=== PATIENT | female | born 1980 | race Caucasian/White ===

== ENCOUNTER 2021-01-01 20:49 | Inpatient (IN) | payer MEDICAID, SELFPAY ==
[~2021-01-01] VITALS: Ht 177.8 cm; Wt 72.6 kg
[~2021-01-01 20:49] MED LIST: NORCO5 PO; VITAMINS PO
--- NOTE | 2021-01-01 20:49 | NUR ---
Placed in room 1 . Placed on rn cardiac, blood pressure machine and pulse oximeter. To gown for exam. Side rails up. Report given to
--- NOTE | 2021-01-01 20:57 | NUR ---
ER at bedside examining patient.
[2021-01-01 20:58] VITALS: BP_SYST 158
[2021-01-01] MEDS ORDERED: LACTULOSE 20 GM/30 ML UDC PO ONE (21:00)
[2021-01-01] MEDS ORDERED: PANTOPRAZOLE SODIUM 40 MG/VIAL (PROTONIX) IVP ONE (21:00)
--- NOTE | 2021-01-01 21:00 | NUR ---
Patient brought in via EMS from home. pt is a 40-year-old female, with history of chronic liver disease, who presents to the ED by ambulance from home with altered mental status for the past 24 hours. EMS also reports complaints of generalized weakness and jaundice. vital signs stable and pt afeb.
[2021-01-01 21:54] LABS: POTASSIUM 4.1 mmol/L (3.5-5.1)
[2021-01-01 21:55] LABS: CALCIUM 8.9 mg/dL (8.4-11.0); TOTAL BILIRUBIN 3.9 mg/dL (0.0-1.0)
[2021-01-01 21:56] LABS: ALBUMIN 2.6 g/dL (3.4-4.8); CREATININE 2.06 mg/dL (0.55-1.30)
[2021-01-01 21:58] LABS: BASOPHILS # (AUTO) 0.1 K/uL (0.0-0.2); BASOPHILS % (AUTO) 1.2 % (0.0-2.0); EOSINOPHILS # (AUTO) 0.1 K/uL (0.0-0.4); EOSINOPHILS % (AUTO) 1.1 % (0.0-4.0); HEMATOCRIT 23.3 % (36-48); HEMOGLOBIN 7.8 g/dL (12.0-16.0); LYMPHOCYTES # (AUTO) 0.9 K/uL (1.0-5.5); LYMPHOCYTES % (AUTO) 17.9 % (20.5-51.5); MEAN CORPUSCULAR HEMOGLOBIN 33 pg (27-31); MEAN CORPUSCULAR HGB CONC 34 % (32-36); MEAN CORPUSCULAR VOLUME 98 fL (79.0-98.0); MONOCYTES # (AUTO) 0.2 K/uL (0.0-1.0); MONOCYTES % (AUTO) 4.4 % (1.7-9.3); NEUTROPHILS % (AUTO) 75.4 % (40.0-70.0); RED BLOOD CELL COUNT(AUTO) 2.39 MIL/uL (4.2-6.2); RED CELL DISTRIBUTION WIDTH 18.9 % (9.0-15.0); WHITE BLOOD COUNT (AUTO) 5.3 K/uL (4.8-10.8)
--- NOTE | 2021-01-01 22:00 | NUR ---
some labs still pending, nursing interventions are well tolerated as well Portable CXR bedside
[2021-01-01 22:02] LABS: BILIRUBIN,URINE NEGATIVE (NEGATIVE); CLARITY/URINE CLEAR (CLEAR); GLUCOSE,URINE NEGATIVE (NEGATIVE); KETONES,URINE TRACE (NEGATIVE); LEUKOCYTE ESTERASE ,URINE NEGATIVE (NEGATIVE); NITRITE, URINE NEGATIVE (NEGATIVE); PH,URINE 6.5 (5.0-8.0); PROTEIN URINE TRACE (NEGATIVE); UROBILINOGEN,URINE 0.2 (0.2-1.0)
[2021-01-01 22:09] LABS: BLOOD, URINE TRACE (NEGATIVE); COLOR,URINE AMBER (YELLOW)
[2021-01-01 22:13] LABS: RBC,URINE 0-3 /HPF (0-3); URINE SULFO SALICYLIC ACID NEGATIVE (NEGATIVE); WBC,URINE 0-3 /HPF (0-3)
[2021-01-01 22:13] LABS: PLATELET COUNT (AUTO) 85 K/uL (130-430)
[2021-01-01 22:14] LABS: BACTERIA,URINE FEW /HPF (None Seen); MUCUS,URINE None Seen /LPF (None Seen)
[2021-01-01] MEDS ORDERED: FOLI-43 PO (22:41)
[2021-01-01] MEDS ORDERED: FURO40TA5 PO (22:46)
--- NOTE | 2021-01-01 23:25 | NUR ---
Dr. Schulte bedside for pt re-eval and update
[2021-01-01] MEDS ORDERED: GOLYTELY / COLYTE SOLUTION 4 LITERS PO ONE (23:45)
[2021-01-02] MEDS: LACTULOSE 20 GM/30 ML UDC PO SCH ×4 (00:15→23:23)
--- NOTE | 2021-01-02 00:28 | NUR ---
VSS, remains lethargic NG tube verified in place, Go Lytely well tolerated
[2021-01-02 00:38] LABS: AMYLASE 49 U/L (0-100); LIPASE 183 U/L (73-393)
[2021-01-02 00:46] LABS: BARBITURATE, URINE NEGATIVE (NEG <=200); BENZODIAZEPINE, URINE NEGATIVE (NEG <=150); CANNABINOID, URINE NEGATIVE (NEG <=50); COCAINE, URINE NEGATIVE (NEG <=150); METHAMPHETAMINES SCREEN,URINE NEGATIVE (NEG <=500); OPIATE, URINE NEGATIVE (NEG <=100); PHENCYCLIDINE SCREEN,URINE NEGATIVE (NEG <=25); UR TRICYCLIC ANTIDEPRESSANTS NEGATIVE (NEG <=300); URINE AMPHETAMINE NEGATIVE (NEG <=500); URINE METHADONE NEGATIVE (NEG <=200); URINE OXYCODONE SCREEN NEGATIVE (NEG <=100); URINE PROPOXYPHENE SCREEN NEGATIVE (NEG <=300)
--- NOTE | 2021-01-02 01:19 | NUR ---
Pt remains in stable condition, Dr. Schulte bedside for re-assessment
[2021-01-02] MEDS: NACL 0.9% 1,000 ML IV SCH ×3 (01:20→23:20)
--- NOTE | 2021-01-02 02:00 | NUR ---
pt not tolerating go lytely very well and had some emesis. cxry ordered to verify ngt placement and tube was correctly placed. go lytley stoped temporariy so infusion not complete yet. will continue to monitor.
--- NOTE | 2021-01-02 04:39 | NUR ---
0400 pt remains stable. Pt wshed up and treansferred to a hospital bed for more comfort. no bowel movement from the go lytely infusion yet. will continue to monitor
--- NOTE | 2021-01-02 06:36 | NUR ---
pt remains stable overnight. Vital signs remain stable. pt still hasnt have a bowel movement sincethe golytely was given
--- NOTE | 2021-01-02 07:14 | NUR ---
Pt asleep in hospital bed. Vital signs holding. Attached to monitor with side rails up.
--- NOTE | 2021-01-02 07:14 | NUR ---
Report recieved from Francisco MCGEE.
--- NOTE | 2021-01-02 08:00 | NUR ---
Patient transported to radiology via gurney, accompanied by benjamín.
--- NOTE | 2021-01-02 08:15 | NUR ---
Pt back from CT reattached to monitor.
--- NOTE | 2021-01-02 08:47 | NUR ---
Patient will be admitted to care of Dr. Amaya. Admitted to Telemetry unit. Will go to room 121C. Belongings list completed. Complete and up to date summary report printed. SBAR report to be given at bedside with opportunity for questions.
--- NOTE | 2021-01-02 08:48 | NUR ---
Transferred pt to telemetry unit on hospital bed ETA now.
--- NOTE | 2021-01-02 09:00 | NUR ---
NOTE Pt arrived on floor at 09am from ED. Pt had NGT clamped for oral fluids (lactulose). IV in right and left hand intact and patent at this time. Pt does not respond to questions/queries - pt was logrolled side to side with maximum assist - 2 person as pt does not respond to instructions at this time. Pt unable to comprehend orientation to room and nursing routines and procedures at this time. Call light within reach and pt next to nurses' station for close observation.
[2021-01-02] MEDS ORDERED: RIFAXIMIN 550 MG TABLET PO ONE (09:45)
[2021-01-02 10:44] VITALS: BP_SYST 137
[2021-01-02] MEDS ORDERED: FER300L PO (11:20)
[2021-01-02] MEDS ORDERED: ZINC50TA69 PO (11:20)
[2021-01-02] MEDS ORDERED: SPIR100T5 PO (11:20)
[2021-01-02] MEDS ORDERED: RIFA550T5 PO (11:20)
[2021-01-02] MEDS ORDERED: OMEP20CA15 PO (11:20)
[2021-01-02] MEDS ORDERED: FAMO20TA8 PO (11:20)
[2021-01-02] MEDS ORDERED: FURO-149 PO (11:20)
[2021-01-02] MEDS ORDERED: MULT-1164 PO (11:20)
[2021-01-02] MEDS ORDERED: LACT10SO6 PO (11:20)
[2021-01-02 12:00] VITALS: BP_SYST 135
--- NOTE | 2021-01-02 12:14 | NUR ---
NOTE Pt's medications were taken to [facility]. Pt's vitamins and supplements in bag next to pt's bureau.
--- NOTE | 2021-01-02 12:26 | NUR ---
CONSULTATION PAGED REASON FOR CONSULTATION:AMANDA WAS CONSULT CALLED?Y PERSON WHO WAS NOTIFIED:HARJIT CONSULTING PHYSICIAN:KAIA QUINTERO (JOANA BARRON MANAGER TRAINEE) STAFF REGISTERED NURSE SPECIALTY:NEPHRO STAFF REGISTERED NURSE PHONE NUMBER:[phone] REQUESTING PHYSICIAN:BURAK ERNANDEZ
--- NOTE | 2021-01-02 14:13 | NUR ---
Note Pt's jose angel Thakkar called for update on pt's status. Dr Nelson at bedside for assessment of pt at this time. Call light within reach. Pt still non responsive to questions/queries at this time. Call light within reach.
[2021-01-02 16:00] VITALS: BP_SYST 173
--- NOTE | 2021-01-02 16:41 | NUR ---
PAGED PAGED BURAK ERNANDEZ AT [phone] SPOKE WITH .
[2021-01-02] MEDS ORDERED: hydrALAZINE HCL 20 MG/ML VIAL IVP PRN (16:45)
--- NOTE | 2021-01-02 18:15 | NUR ---
Note Pt having US of abdomen at bedside at this time. Pt was checked on q1' and PRN all shift for needs and care. Pt stable. Pt's bed in low position and bed alarm on all shift. Pt maintained with safety precautions all shift. Call light within reach.
--- NOTE | 2021-01-02 19:40 | NUR ---
CHANGE OF SHIFT; pt. sleeping when received. kept NPO. no distress. bed alarm on. IVF infusing. on hospital monitor and shows sinus tach 130. pt. room close to nurses station, unable to use call light.
[2021-01-02 20:21] VITALS: BP_SYST 152
--- NOTE | 2021-01-02 21:00 | NUR ---
NOTES; medications per NGT and clamped. some movements noted when stimulated but remain sleeping.
[2021-01-02] MEDS: RIFAXIMIN 550 MG TABLET PO SCH (21:04)
[2021-01-03 00:01] VITALS: BP_SYST 148
--- NOTE | 2021-01-03 00:13 | NUR ---
NOTES: pt. noted to be moaning. due medication via NGT. pt. michelle called earlier and gave update. continue to monitor. VS checked .HR still up 127.
--- NOTE | 2021-01-03 02:30 | NUR ---
NOTES: remain sleeping. condition observed, continue to monitor.
--- NOTE | 2021-01-03 05:00 | NUR ---
NOTES; complete am care done. no bm. medications thru NGT, kept NPO. IV infusing. repositioned. oral care done.
[2021-01-03] MEDS: LACTULOSE 20 GM/30 ML UDC PO SCH ×2 (05:57→15:41)
--- NOTE | 2021-01-03 06:30 | NUR ---
CLOSING NOTES; CONDITION UNCHANGED, BEEN MOANING ON STIMULATION. IV SITE PATENT. NGT INTACT. FOR FURTHER CARE AND OBSERVATION. WILL ENDORASE TO INCOMING SHIFT. BED ALARM ON.
[2021-01-03 07:50] LABS: BASOPHILS % (AUTO) 0.3 % (0.0-2.0); EOSINOPHILS % (AUTO) 0.2 % (0.0-4.0); HEMOGLOBIN 7.4 g/dL (12.0-16.0); LYMPHOCYTES # (AUTO) 1.6 K/uL (1.0-5.5); LYMPHOCYTES % (AUTO) 12.9 % (20.5-51.5); MEAN CORPUSCULAR HEMOGLOBIN 33 pg (27-31); MEAN CORPUSCULAR HGB CONC 34 % (32-36); MEAN CORPUSCULAR VOLUME 98 fL (79.0-98.0); MONOCYTES # (AUTO) 1.1 K/uL (0.0-1.0); MONOCYTES % (AUTO) 9.4 % (1.7-9.3); NEUTROPHILS # (AUTO) 9.4 K/uL (1.8-7.7); NEUTROPHILS % (AUTO) 77.2 % (40.0-70.0); PLATELET COUNT (AUTO) 123 K/uL (130-430); RED BLOOD CELL COUNT(AUTO) 2.24 MIL/uL (4.2-6.2); RED CELL DISTRIBUTION WIDTH 19.3 % (9.0-15.0); WHITE BLOOD COUNT (AUTO) 12.2 K/uL (4.8-10.8)
[2021-01-03 08:05] VITALS: BP_SYST 157
--- NOTE | 2021-01-03 08:05 | NUR ---
Opening note patient resting in bed, lethargic, patient is moaning, unable to follow commands, jaundiced, abd is soft but distended, NGT to right nare in patent and clamped, IV lines are patent and infusing well, noted that patient has bleeding from in the mouth - old dried blood and active bleeding from her gums, performed oral care with difficulty and patient is not cooperative - will inform MD of bleeding, no signs of distress, continuing to monitor, bed in lowest position, three side rails up, bed alarm on, bed close to nursing station, fall and aspiration precautions in place.
[2021-01-03 08:44] LABS: ALBUMIN 2.5 g/dL (3.4-4.8); CALCIUM 8.6 mg/dL (8.4-11.0); CREATININE 2.03 mg/dL (0.55-1.30); POTASSIUM 3.8 mmol/L (3.5-5.1)
[2021-01-03] MEDS: RIFAXIMIN 550 MG TABLET PO SCH ×2 (09:09→20:38)
--- NOTE | 2021-01-03 10:17 | NUR ---
Dr. Rey rounds assessed the patient, new orders noted - will follow up. Made aware of patient bleeding in the mouth - no new orders. Addendum: 01/03/21 at 1531 by Chester Pinto RN Paged Dr. Krissy DIEGO had verbalized that patient will have MRCP tomorrow, no order noted.
[2021-01-03 12:24] VITALS: BP_SYST 144
--- NOTE | 2021-01-03 12:52 | NUR ---
Spoke with Dr. Smith regarding critical labs and patient bleeding from the mouth - received new orders and MD to see the patient.
--- NOTE | 2021-01-03 12:55 | NUR ---
Attempted to call family patient's fiance for blood transfusion consent, left a voicemail - will follow up. Addendum: 01/03/21 at 1529 by Chester Pinto RN Patient's fiance, Bijan at bedside, he signed the consent for blood transfusion.
[2021-01-03] MEDS: SODIUM BICARBONATE 8.4% JECT 50 MEQ in D5/0.45 NS 1,000 ML IV SCH (13:59)
--- NOTE | 2021-01-03 14:00 | NUR ---
Spoke with family patient's Salome Thakkar, gave him an update, he will come to see the patient in about 1 hour, he would like to talk in person regarding consent for blood and MRCP, will follow up as needed.
--- NOTE | 2021-01-03 14:20 | NUR ---
Dr. Smith rounds assessed patient, aware of bleeding from mouth, will follow up with any new orders.
[2021-01-03 16:14] VITALS: BP_SYST 149
--- NOTE | 2021-01-03 18:05 | NUR ---
BT INITIATION: Consent signed per patient's significant other, Bijan, agreeing to administration of blood. Blood has been type and crossmatched. Blood sent from blood bank. Information on unit of blood checked against patient wristband at bedside by two nurses. All information matches. Patient or responsible libertarian informed of potential complications associated with blood transfusion. Informed of possible transfusion reaction symptoms. Aware of need to notify nurse at once of itching, shortness of breath, flushing, feeling of impending doom, or other symptoms not previously present. Vital signs taken within 5 minutes prior to initiation of transfusion. RN will remain with patient for first 15 minutes of transfusion at which time vital signs will be re-assessed. Addendum: 01/03/21 at 1821 by Chester Pinto RN 15 minutes post start of blood transfusion, patient is tolerating well, continuing to monitor.
--- NOTE | 2021-01-03 18:44 | NUR ---
Closing note patient resting in bed, eyes closed, breathing is even and unlabored, no signs of distress, tolerating blood transfusion well, all needs met, will endorse report to NOC shift nurse, bed in lowest position, three side rails up, bed alarm on, bed close to nursing station, fall and aspiration precautions in place.
--- NOTE | 2021-01-03 19:20 | NUR ---
CHANGE OF SHIFT; endorsed by day shift started on Blood transfusion. no acute distress. on fall risk, bed alarm on.
[2021-01-03 20:30] VITALS: BP_SYST 130
--- NOTE | 2021-01-03 20:30 | NUR ---
NOTES: pt. sleeping, still pretty lethargic, moans occasionally.Blood transfusion still in progress. HOB elevated, on NGT feeding with Nephro @ 40 cc.hr. VS checked. on alarm security or surveillance monitor and shows sinu tach. old blood orally noted.
[2021-01-03] MEDS: FAMOTIDINE 20 MG TABLET PO SCH (20:38)
--- NOTE | 2021-01-03 21:10 | NUR ---
NOTES: Blood transfusion completed. VS checked. resume main IVF after.
--- NOTE | 2021-01-03 22:37 | NUR ---
NOTES: pt. starts coughing, suctioned orally and oral care done.
[2021-01-04 00:23] VITALS: BP_SYST 157
--- NOTE | 2021-01-04 00:30 | NUR ---
NOTES: still coughing, dark mucus came out and suctioned. due neds via NGT. chad and groans.
[2021-01-04] MEDS: LACTULOSE 20 GM/30 ML UDC PO SCH ×4 (00:31→23:45)
[2021-01-04] MEDS: SODIUM BICARBONATE 8.4% JECT 50 MEQ in D5/0.45 NS 1,000 ML IV SCH ×3 (00:31→14:51)
--- NOTE | 2021-01-04 03:00 | NUR ---
NOTES: condition observed. still coughing every now and then. NGT feed continuous. H2oO flush done.
--- NOTE | 2021-01-04 05:00 | NUR ---
NOTES'; complete am/gali care and oral care done. no bm, incontinent of urine.
--- NOTE | 2021-01-04 06:40 | NUR ---
Nutrition Update Alfredo Scale 12 noted. Pt admitted for Hepatic Encephalopathy Diet: Nepro at 40ml/hr, FWF 100ml via NGT BMI: 23 kg/m2 RD to follow per nutrition care standards.
--- NOTE | 2021-01-04 06:50 | NUR ---
CLOSING NOTES; condition observed. IVF continuous. NGT feed at same rate. remains lethargic. for further care and assistance. no BM. bed alarm on. pt. unable to use call light.
[2021-01-04 07:14] LABS: BASOPHILS % (AUTO) 0.4 % (0.0-2.0); EOSINOPHILS # (AUTO) 0.1 K/uL (0.0-0.4); EOSINOPHILS % (AUTO) 0.7 % (0.0-4.0); HEMOGLOBIN 7.9 g/dL (12.0-16.0); LYMPHOCYTES # (AUTO) 1.6 K/uL (1.0-5.5); MEAN CORPUSCULAR HEMOGLOBIN 33 pg (27-31); MEAN CORPUSCULAR HGB CONC 34 % (32-36); MEAN CORPUSCULAR VOLUME 97 fL (79.0-98.0); MONOCYTES # (AUTO) 1.4 K/uL (0.0-1.0); MONOCYTES % (AUTO) 10.1 % (1.7-9.3); NEUTROPHILS # (AUTO) 10.4 K/uL (1.8-7.7); NEUTROPHILS % (AUTO) 76.8 % (40.0-70.0); PLATELET COUNT (AUTO) 101 K/uL (130-430); RED BLOOD CELL COUNT(AUTO) 2.37 MIL/uL (4.2-6.2); RED CELL DISTRIBUTION WIDTH 18.9 % (9.0-15.0); WHITE BLOOD COUNT (AUTO) 13.6 K/uL (4.8-10.8)
[2021-01-04 08:00] VITALS: BP_SYST 153
[2021-01-04] MEDS: RIFAXIMIN 550 MG TABLET PO SCH ×2 (08:49→20:53)
[2021-01-04] MEDS: FERROUS SULFATE 300 MG/5 ML UDC PO SCH (08:50)
[2021-01-04] MEDS: FOLIC ACID 1 MG TABLET PO SCH (08:50)
[2021-01-04] MEDS: FAMOTIDINE 20 MG TABLET PO SCH ×2 (08:50→20:53)
[2021-01-04] MEDS: MULTIVITS,CA,MINERALS/IRON/FA 1 TABLET PO SCH (08:50)
[2021-01-04] MEDS ORDERED: FUROSEMIDE 40 MG TABLET PO SCH (09:00)
--- NOTE | 2021-01-04 09:00 | NUR ---
GI Patient vomited with phlegm , coughing is dry , oral care given suction secretion, vitals stable , hold feeding temporarily will monitor.
[2021-01-04 09:33] VITALS: BP_SYST 150
[2021-01-04] MEDS: ONDANSETRON HCL 4 MG/2 ML VIAL IVP PRN (10:27)
--- NOTE | 2021-01-04 10:45 | NUR ---
Skin care/comfort Perineal care given , no redness, repositioned, head of bed kept semi fowlers of NGT feeding aspiration precaution, oral secretion suction , oral care given,
[2021-01-04 10:46] LABS: ALBUMIN 2.4 g/dL (3.4-4.8); CALCIUM 8.8 mg/dL (8.4-11.0); CREATININE 2.39 mg/dL (0.55-1.30); PHOSPHORUS 2.5 mg/dL (2.7-4.5); POTASSIUM 3.4 mmol/L (3.5-5.1); TOTAL BILIRUBIN 4.9 mg/dL (0.0-1.0)
--- NOTE | 2021-01-04 11:18 | NUR ---
Dietitian Recommendations *Recommend: continue: Nepro at 40ml/hr, FWF per physician via NGT Provides: 1728 kcal, 78gm protein and 698ml fluids. Meets: 79% of lower end of estimated calorie needs and 83% of upper end of estimated protein needs. Please see Nutritional Assessment for details. NURSING HOME, RD
[2021-01-04 12:41] LABS: TOTAL IRON BIND. CAPACITY 210 ug/dL (250-450)
--- NOTE | 2021-01-04 12:46 | NUR ---
Patient moans to verbal stimuli , NGT feeding tolerates well , aspiration precaution , repositioned. Addendum: 01/04/21 at 1339 by Radha Majano RN Patient abdomen is distended bowel sound is positive and passing gas., no sign of acute discomfort.
[2021-01-04 13:26] VITALS: BP_SYST 148
--- NOTE | 2021-01-04 13:48 | NUR ---
Patient has a big large bowel movement yellow to black color , perineal care given , repositioned
[2021-01-04] MEDS ORDERED: POTASSIUM CHLORIDE 20 MEQ TAB.PRT.SR PO ONE (15:45)
[2021-01-04] MEDS ORDERED: POTASSIUM CHLORIDE 20 MEQ/PKT PACKET PO ONE (16:00)
[2021-01-04] MEDS ORDERED: POTASSIUM CHLORIDE 10 MEQ TAB.PRT.SR PO ONE (16:00)
[2021-01-04 16:05] VITALS: BP_SYST 149
--- NOTE | 2021-01-04 18:18 | NUR ---
Patient moans if called by name lethargic , tolerating feeding well, had soft stool ,perineal care given , repositioned , bilateral heel keep floating, supported by pillow aspiration precaution.
--- NOTE | 2021-01-04 19:25 | NUR ---
CHANGED OF SHIFT; pt. remain sleeping, pretty lethargic. no distress. pt. room close to nurses station. bed alarm on. pt. unable to use call light.
[2021-01-04 20:30] VITALS: BP_SYST 152
--- NOTE | 2021-01-04 21:30 | NUR ---
NOTES: due medications per NGT, on continuous feed @ 40 cc/hr. IV infusing via rt. hand. on electronic device monitor and shows sinus tach.
--- NOTE | 2021-01-04 23:45 | NUR ---
NOTES: pt. had large amounts of loose stool. complete hs /gali care done, change linen and gown. repositioned and turn to sides. pt. moans on stimulation. occ. bouts of non productive cough.
[2021-01-05 00:37] VITALS: BP_SYST 144
--- NOTE | 2021-01-05 02:00 | NUR ---
NOTES: noted NGT is quite out, flushed and came out from the nose, readjusted and double check with another RN for placement. resume feeding. pt. heard "what are you doing? and went back to sleep.
[2021-01-05] MEDS: SODIUM BICARBONATE 8.4% JECT 50 MEQ in D5/0.45 NS 1,000 ML IV SCH ×2 (02:19→17:50)
--- NOTE | 2021-01-05 02:21 | NUR ---
NOTES: pt. starting to wake up and saying something. condition observed.
--- NOTE | 2021-01-05 04:02 | NUR ---
NOTES: HR went up to 150. pt sleeping. BP checked 142/86, O2 sat 97%.
[2021-01-05 04:05] VITALS: BP_SYST 142
--- NOTE | 2021-01-05 04:45 | NUR ---
NOTES; good oral care done, still with some dried blood in her tongue, suctioned orally.
--- NOTE | 2021-01-05 04:56 | NUR ---
NOTES: called Dr. Smith , Dr. Thakkar prototype assembler electronics ,informed about the HR 150. reinsert NGT and Lopressor po per NGT and consuly with Dr. Orion acharya.
[2021-01-05] MEDS ORDERED: METOPROLOL TARTRATE 25 MG TABLET PO ONE (05:00)
--- NOTE | 2021-01-05 05:04 | NUR ---
CONSULTATION PAGED/CALLED Reason for Consultation: elevated heart rate Person Who was Notified: sheri Consulting Physician: araceli Architectural Engineering Teacher Specialty: Ordering Physician: sourav
--- NOTE | 2021-01-05 05:27 | NUR ---
NOTES: rafael FLORENTINOT ivorian 16 inserted without difficulty, x ray called for placement.
--- NOTE | 2021-01-05 06:00 | NUR ---
NOTES: still waiting for X ray. called and spoke to Carol, said she is still busy in ER, inform her need to give medication per NGT, will come as soon as possible.
--- NOTE | 2021-01-05 06:25 | NUR ---
NOTES: X ray done for NGT placement and ok by tech for placement. medication due to give per NGT.
[2021-01-05 07:17] LABS: BASOPHILS # (AUTO) 0.1 K/uL (0.0-0.2); BASOPHILS % (AUTO) 0.4 % (0.0-2.0); EOSINOPHILS # (AUTO) 0.1 K/uL (0.0-0.4); EOSINOPHILS % (AUTO) 0.6 % (0.0-4.0); HEMATOCRIT 24.8 % (36-48); HEMOGLOBIN 8.4 g/dL (12.0-16.0); LYMPHOCYTES # (AUTO) 1.5 K/uL (1.0-5.5); LYMPHOCYTES % (AUTO) 11.8 % (20.5-51.5); MEAN CORPUSCULAR HEMOGLOBIN 33 pg (27-31); MEAN CORPUSCULAR HGB CONC 34 % (32-36); MEAN CORPUSCULAR VOLUME 96 fL (79.0-98.0); MONOCYTES % (AUTO) 8.2 % (1.7-9.3); NEUTROPHILS # (AUTO) 9.9 K/uL (1.8-7.7); PLATELET COUNT (AUTO) 96 K/uL (130-430); RED BLOOD CELL COUNT(AUTO) 2.58 MIL/uL (4.2-6.2); RED CELL DISTRIBUTION WIDTH 19.1 % (9.0-15.0); WHITE BLOOD COUNT (AUTO) 12.5 K/uL (4.8-10.8)
--- NOTE | 2021-01-05 07:39 | NUR ---
CALLED LINDA AND NOTIFIED THAT COLLIN WAS PLACED IN BILATERAL SOFT WRIST RESTRAINTS BECAUSE SHE IS WAKING UP MORE AND TRYING TO PULL OUT HER NG TUBE. ANSWERED ALL QUESTIONS, AGREED WITH RESTRAINTS AT THIS TIME.
[2021-01-05 07:42] LABS: ALBUMIN 2.3 g/dL (3.4-4.8); CALCIUM 9.2 mg/dL (8.4-11.0); CREATININE 2.31 mg/dL (0.55-1.30); PHOSPHORUS 3.1 mg/dL (2.7-4.5); POTASSIUM 3.5 mmol/L (3.5-5.1)
--- NOTE | 2021-01-05 08:00 | NUR ---
PATIENT IN BED, NO S/S OF DISTRESS, TOLERATING CARE, NG TUBE INTACT PATENT AND INFUSING 40ML OF NEPRO AN HOUR, RESIDUAL OF 40ML, IV FLUID RUNNING AT 100ML/HR, IV IS INTACT AND PATENT, ORAL CARE PROVIDED, BED IN LOWEST LOCKED POSITION, CALL LIGHT WITHIN REACH, SAFETY MEASURES IN PLACE, WILL CONTINUE TO MONITOR.
[2021-01-05] MEDS: LACTULOSE 20 GM/30 ML UDC PO SCH ×4 (08:22→22:00)
[2021-01-05] MEDS: FERROUS SULFATE 300 MG/5 ML UDC PO SCH (08:22)
[2021-01-05] MEDS: RIFAXIMIN 550 MG TABLET PO SCH ×2 (08:22→22:00)
[2021-01-05] MEDS: MULTIVITS,CA,MINERALS/IRON/FA 1 TABLET PO SCH (08:23)
[2021-01-05] MEDS: FOLIC ACID 1 MG TABLET PO SCH (08:23)
[2021-01-05] MEDS: FUROSEMIDE 20 MG TABLET PO SCH (08:23)
[2021-01-05] MEDS: FAMOTIDINE 20 MG TABLET PO SCH ×2 (08:23→22:00)
--- NOTE | 2021-01-05 08:23 | NUR ---
READ NOTE FROM DR HERZOG TO HOLD LASIX, SO HOLDING MORNING DOSE OF LASIX.
[2021-01-05] MEDS ORDERED: DIATR MEGLU/DIATRIZ SOD 30 ML SOLUTION PO ONE (09:43)
--- NOTE | 2021-01-05 10:15 | NUR ---
STARTED PROVIDING PATIENT WITH CONTRAST IN NG TUBE FOR CT SCAN, CONFIRMED WITH DOSING AND HOW LONG TO GIVE IT OVER WITH RADIOLOGY, STATED TO PROVIDE ALL CONTRAST OVER 2HOURS.
--- NOTE | 2021-01-05 12:30 | NUR ---
NOTIFIED RADIOLOGY THAT PATIENT HAS RECEIVED ALL CONTRAST VIA NG TUBE.
[2021-01-05 12:54] VITALS: BP_SYST 140
--- NOTE | 2021-01-05 14:00 | NUR ---
PATIENT IS BACK FROM RADIOLOGY, RESULT OF CT WITH CONTRAST SHOWED BLADDER DISTENSION AND RECOMMENDED TO HAVE LAYNE CATHETER PLACED, CONTACTED DR HUNTER AND HAD ORDER PLACE. PLACE THE LAYNE CATHETER, 2,800ML OF URINE WAS COLLECTED, PATIENT TOLERATED WELL, VITALS WERE STABLE BEFORE AND AFTER DRAINAGE OF URINE, URINE COLOR WAS CLEAR SALINA. Addendum: 01/05/21 at 1852 by Esha Rice RN TIME OF LAYNE PLACEMENT WAS 1630
[2021-01-05 16:19] VITALS: BP_SYST 143
--- NOTE | 2021-01-05 18:54 | NUR ---
PATIENT IN BED, NO S/S OF DISTRESS, TOLERATING CARE, NG TUBE INTACT PATENT AND INFUSING 40ML OF NEPRO AN HOUR, RESIDUAL OF 40ML, IV FLUID RUNNING AT 100ML/HR, IV IS INTACT AND PATENT, ORAL CARE PROVIDED, BED IN LOWEST LOCKED POSITION, CALL LIGHT WITHIN REACH, SAFETY MEASURES IN PLACE, LAYNE CATHETER DRAINING URINE, WILL ENDORSE TO JUNIOR MARKETING ASSOCIATE.
[2021-01-05 19:00] VITALS: BP_SYST 132
[2021-01-05] MEDS ORDERED: SODIUM BICARBONATE 8.4% JECT 50 MEQ/50 ML SYRINGE ONE ×2 (21:39→22:08)
[2021-01-06 00:40] VITALS: BP_SYST 130
[2021-01-06] MEDS: SODIUM BICARBONATE 8.4% JECT 50 MEQ in D5/0.45 NS 1,000 ML IV SCH ×2 (04:19→14:30)
[2021-01-06 06:52] LABS: EOSINOPHILS # (AUTO) 0.2 K/uL (0.0-0.4); EOSINOPHILS % (AUTO) 1.5 % (0.0-4.0); HEMATOCRIT 23.4 % (36-48); HEMOGLOBIN 7.9 g/dL (12.0-16.0); LYMPHOCYTES % (AUTO) 13.5 % (20.5-51.5); MEAN CORPUSCULAR HEMOGLOBIN 33 pg (27-31); MEAN CORPUSCULAR HGB CONC 34 % (32-36); MEAN CORPUSCULAR VOLUME 97 fL (79.0-98.0); MONOCYTES # (AUTO) 1.5 K/uL (0.0-1.0); MONOCYTES % (AUTO) 10.2 % (1.7-9.3); NEUTROPHILS % (AUTO) 74.8 % (40.0-70.0); PLATELET COUNT (AUTO) 89 K/uL (130-430); RED BLOOD CELL COUNT(AUTO) 2.41 MIL/uL (4.2-6.2); RED CELL DISTRIBUTION WIDTH 18.4 % (9.0-15.0); WHITE BLOOD COUNT (AUTO) 14.8 K/uL (4.8-10.8)
[2021-01-06 07:37] LABS: BILIRUBIN,DIRECT 2.7 mg/dL (0.0-0.3); CALCIUM 8.9 mg/dL (8.4-11.0); CREATININE 2.11 mg/dL (0.55-1.30); POTASSIUM 3.1 mmol/L (3.5-5.1)
[2021-01-06 07:40] LABS: TOTAL BILIRUBIN 5.1 mg/dL (0.0-1.0)
[2021-01-06 08:00] VITALS: BP_SYST 134
--- NOTE | 2021-01-06 08:08 | NUR ---
CONSULTATION PAGED REASON FOR CONSULTATION:WBC UP TRENDING WAS CONSULT CALLED?Y PERSON WHO WAS NOTIFIED:SUDHAKAR CONSULTING PHYSICIAN:SIMON CERDA OIL EXPLORATION ENGINEER SPECIALTYINFEXTIOUS DISEASE: OIL EXPLORATION ENGINEER PHONE NUMBER:[phone] REQUESTING PHYSICIAN:[facility]
[2021-01-06] MEDS ORDERED: POTASSIUM CHLORIDE 40 MEQ, LIDOCAINE JECT 2% PF 100 MG 50 MG in NS 250 ML IV ONE (08:15)
[2021-01-06] MEDS: FOLIC ACID 1 MG TABLET PO SCH (09:12)
[2021-01-06] MEDS: RIFAXIMIN 550 MG TABLET PO SCH ×2 (09:12→21:16)
[2021-01-06] MEDS: FUROSEMIDE 20 MG TABLET PO SCH (09:13)
[2021-01-06] MEDS: FERROUS SULFATE 300 MG/5 ML UDC PO SCH (09:13)
[2021-01-06] MEDS: LACTULOSE 20 GM/30 ML UDC PO SCH ×4 (09:14→21:16)
[2021-01-06] MEDS: FAMOTIDINE 20 MG TABLET PO SCH ×2 (09:14→21:16)
[2021-01-06] MEDS: MULTIVITS,CA,MINERALS/IRON/FA 1 TABLET PO SCH (09:14)
--- NOTE | 2021-01-06 10:08 | NUR ---
REC'D REPORT FROM OFFGOING NURSE ASSESS PT IS LETHARGIC WAS TOLD BY OFFGOING NURSE PT DIDN'T WOKE UP THE WHOLE NIGHT BUT SHE IS RESPONSIVE TO TOUCH HOB ELEVATED REC'ING TUBEFEEDING @40ML/HR CK RESIDUAL 10ML LS SL COARSE SHREYAS BS POS IN ALL FOUR QUAD ABD DISTENT BUT SOFT HAS A LAYNE CATH DRAINING DARK SALINA URINE OVERALL APPEARANCES SLEEPY BLE'S NEG FOR EDEMA CSM FAIR PULSES PRESENT IS REC'ING IVF VSS IS ON THE MONITOR ST DID NOTE PT HAS SHREYAS WRIST RESTRAINT ON REMOVED AND SKIN ASSESS WNL PLACED BACK ON COMFORT AND SAFETY MAINTAINED
[2021-01-06 12:00] VITALS: BP_SYST 142
[2021-01-06] MEDS: metroNIDAZOLE 250 mg/NS 50 ML IV SCH ×2 (15:00→21:18)
[2021-01-06] MEDS: cefTRIAXone 1 GM in D5W 50 ML IV SCH (15:09)
[2021-01-06 16:00] VITALS: BP_SYST 131
--- NOTE | 2021-01-06 16:29 | NUR ---
PT STARTED TO OPEN HER EYES AND BECOME ALERT BOYFRIEND AT HERE SIDE. HE IS VERY ANXIOUS AND NERVOUS TEACHING GIVEN R/T PT'S CARE WITH SOME EFFECT WANTING THE DOCTOR TO COME RIGHT TO SEE HIM ENC PT TO VOICED HIS CONCERNS TO ME . HE STATED HE WANTED THE DOCTOR TO REMOVED THE FECES RECTALLY SO THE PT CAN GET BETTER TEACHING GIVEN ALSO I LEFT THE PHYSICIAN A NOTE ON THE CHART TO CALL HIM
[2021-01-06 20:00] VITALS: BP_SYST 118
--- NOTE | 2021-01-06 20:30 | NUR ---
Took over care of patient 3 1/2 into shift. received bedside report. pt in bed resting. call light within reach. bed alarm on. bed rails upx2. will continue to monitor.
[2021-01-07] VITALS: BP_SYST 156
[2021-01-07] MEDS: SODIUM BICARBONATE 8.4% JECT 50 MEQ in D5/0.45 NS 1,000 ML IV SCH (00:49)
--- NOTE | 2021-01-07 01:30 | NUR ---
Pt opened eyes. pt able to state her name. pt said she knew she was in the hospital. pt asked where her fiance was. pt now asleep again. call light within reach. bed locked in lowest position. perri soft wrist restraints in place. bed alarm on. will continue to monitor.
[2021-01-07 05:20] LABS: BILIRUBIN,URINE 2+ (NEGATIVE); BLOOD, URINE 3+ (NEGATIVE); COLOR,URINE YELLOW (YELLOW); GLUCOSE,URINE NEGATIVE (NEGATIVE); KETONES,URINE TRACE (NEGATIVE); LEUKOCYTE ESTERASE ,URINE TRACE (NEGATIVE); NITRITE, URINE NEGATIVE (NEGATIVE); PROTEIN URINE 3+ (NEGATIVE)
[2021-01-07 05:36] LABS: CLARITY/URINE SLIGHTLY CLOUDY (CLEAR)
[2021-01-07] MEDS: metroNIDAZOLE 250 mg/NS 50 ML IV SCH ×3 (05:49→21:56)
[2021-01-07 05:54] LABS: URINE SULFO SALICYLIC ACID NEGATIVE (NEGATIVE)
[2021-01-07 05:55] LABS: BACTERIA,URINE FEW /HPF (None Seen); RBC,URINE 20-50 /HPF (0-3)
[2021-01-07 06:47] LABS: BASOPHILS % (AUTO) 0.2 % (0.0-2.0); EOSINOPHILS # (AUTO) 0.3 K/uL (0.0-0.4); HEMATOCRIT 24.2 % (36-48); HEMOGLOBIN 8.1 g/dL (12.0-16.0); LYMPHOCYTES # (AUTO) 1.9 K/uL (1.0-5.5); LYMPHOCYTES % (AUTO) 22.3 % (20.5-51.5); MEAN CORPUSCULAR HEMOGLOBIN 33 pg (27-31); MEAN CORPUSCULAR HGB CONC 34 % (32-36); MEAN CORPUSCULAR VOLUME 98 fL (79.0-98.0); MONOCYTES % (AUTO) 11.9 % (1.7-9.3); NEUTROPHILS # (AUTO) 5.3 K/uL (1.8-7.7); NEUTROPHILS % (AUTO) 62.6 % (40.0-70.0); PLATELET COUNT (AUTO) 61 K/uL (130-430); RED BLOOD CELL COUNT(AUTO) 2.46 MIL/uL (4.2-6.2); RED CELL DISTRIBUTION WIDTH 19.5 % (9.0-15.0); WHITE BLOOD COUNT (AUTO) 8.5 K/uL (4.8-10.8)
--- NOTE | 2021-01-07 07:03 | NUR ---
Pt in bed resting. pt slept through the night. Urine collected and sent to the lab. bed rails upx2. call light within reach. bed alarm on. endorse care to day shift nurse
[2021-01-07 07:37] LABS: ALBUMIN 1.9 g/dL (3.4-4.8); BILIRUBIN,DIRECT 2.5 mg/dL (0.0-0.3); CALCIUM 8.5 mg/dL (8.4-11.0); CREATININE 1.55 mg/dL (0.55-1.30); POTASSIUM 3.2 mmol/L (3.5-5.1); TOTAL BILIRUBIN 5.2 mg/dL (0.0-1.0)
[2021-01-07] MEDS ORDERED: NS 500 ML IV ONE (08:45)
[2021-01-07] MEDS ORDERED: POTASSIUM CHLORIDE 20 MEQ/PKT PACKET PO ONE (08:45)
[2021-01-07] MEDS ORDERED: POTASSIUM CHLORIDE 40 MEQ, LIDOCAINE JECT 2% PF 100 MG 50 MG in NS 250 ML IV ONE (08:45)
[2021-01-07] MEDS ORDERED: PROPRANOLOL HCL 10 MG TABLET (INDERAL) PO ONE (09:00)
[2021-01-07] MEDS: FERROUS SULFATE 300 MG/5 ML UDC PO SCH (09:19)
[2021-01-07] MEDS: FAMOTIDINE 20 MG TABLET PO SCH ×2 (09:19→21:00)
[2021-01-07] MEDS: FOLIC ACID 1 MG TABLET PO SCH (09:20)
[2021-01-07] MEDS: MULTIVITS,CA,MINERALS/IRON/FA 1 TABLET PO SCH (09:20)
[2021-01-07] MEDS: FUROSEMIDE 20 MG TABLET PO SCH (09:35)
[2021-01-07] MEDS: LACTULOSE 20 GM/30 ML UDC PO SCH ×3 (09:46→18:41)
[2021-01-07] MEDS: RIFAXIMIN 550 MG TABLET PO SCH ×2 (09:48→21:00)
--- NOTE | 2021-01-07 10:00 | NUR ---
Pt cleaned and changed. Grayson cath irrigated. picc line in place. chest xray confirmed placement. Oral care preformed. call light within reach. bed locked in lowest position. Bed alarm on. will continue to monitor. Addendum: 01/08/21 at 0347 by [employer] feed in worker at 1999
--- NOTE | 2021-01-07 11:09 | NUR ---
CONSULTATION: REASON FOR CONSULT: PNA, PERIAORTIC MASS CONSULTING PHYSICIAN: Cynthia BRAND ORDERED BY: KAROLINA USED PAGER [phone] SPOKE WITH MARCELINO
--- NOTE | 2021-01-07 11:11 | NUR ---
CONSULTATION: REASON FOR CONSULT: PERIAORTIC MASS CONSULTING PHYSICIAN: Alberto ORTIZ ORDERED BY: KAROLINA SPOKE WITH KELL [phone]
--- NOTE | 2021-01-07 11:13 | NUR ---
CONSULTATION: REASON FOR CONSULT: PERIAORTIC MASS CONSULTING PHYSICIAN: Cynthia BRINK ORDERED BY: KAROLINA [facility] WITH [facility] [phone]
[2021-01-07] MEDS: D5W 1,000 ML IV SCH ×2 (11:46→21:56)
[2021-01-07] MEDS: cefTRIAXone 1 GM in D5W 50 ML IV SCH (11:47)
[2021-01-07 12:00] VITALS: BP_SYST 143
[2021-01-07 13:08] LABS: INR 1.7 (0.8-1.2); PROTHROMBIN TIME 17.3 SECS (9.5-12.5)
--- NOTE | 2021-01-07 16:13 | NUR ---
CONSULTATION: REASON FOR CONSULT: HYDRONEPHROSIS, MASS, HEMATURIA CONSULTING PHYSICIAN: Lauren OCHOA ORDERED BY: KAROLINA SPOKE WITH JASEN [phone]
[2021-01-07 16:37] VITALS: BP_SYST 155
--- NOTE | 2021-01-07 18:07 | NUR ---
Nutrition F/U RD reviewed pt's current EMR including diet Hx, physician notes, nursing notes, pertinent labs/meds/procedures, care trends, and care activity. Short note d/t high pt load. Current Diet Order/Nutrition Support: NPO x0 days Per EMR review, pt is pending urology consult and PICC line placement. Pt may benefit from re-initiation of EN via NGT as previously ordered (Nepro at 40 ml/hr, Free Water Flush: per physician via NGT). Pt is not yet meeting nutritional needs and is at increased risk for malnutrition. Pt remains at high nutritional risk. RD to F/U within 2-3 days.
--- NOTE | 2021-01-07 19:05 | NUR ---
Received bedside report. pt in bed asleep. rr even and unlabored on ra. pt has ngt in place. pt has perri soft restraints. Pt has iv in R hand. Grayson draining to gravity. call light within reach. bed locked in lowest position. Bed alarm on. will continue to monitor.
--- NOTE | 2021-01-07 19:55 | NUR ---
PAGED/CALLED Consulting Physician: MINO Lead Painter Specialty: KIDNEY
--- NOTE | 2021-01-07 20:00 | NUR ---
Pt cleaned and changed. Grayson cath irrigated. picc line in place. chest xray confirmed placement. Oral care preformed. call light within reach. bed locked in lowest position. Bed alarm on. will continue to monitor.
--- NOTE | 2021-01-07 20:05 | NUR ---
PT CLEARED BY DR. HERZOG TO GET PICC LIKE PER TO/RB
[2021-01-07] MEDS: PROPRANOLOL HCL 10 MG TABLET (INDERAL) PO SCH (21:00)
[2021-01-07 21:53] VITALS: BP_SYST 144
[2021-01-08 01:13] VITALS: BP_SYST 128
--- NOTE | 2021-01-08 02:15 | NUR ---
HYGIENE CARE NOTE HYGIENE CARE IS PROVIDED AT THIS TIME, FRESH LINENS PROVIDED, AND PATIENT IS REPOSITIONED FOR COMFORT. PATIENT TOLERATED WELL. CALL LIGHT PLACED WITHIN REACH. BED IS LOCKED, ALARMED, AND AT THE LOWEST LEVEL. Addendum: 01/09/21 at 0639 by James Pearl RN NOTE INTENDED FOR DIFFERENT TIME.
[2021-01-08] MEDS: metroNIDAZOLE 250 mg/NS 50 ML IV SCH ×3 (05:44→21:18)
--- NOTE | 2021-01-08 06:40 | NUR ---
GI MD DR HOUSTON WAS CALLED, RE: CLARIFY NPO ORDER. SPOKE TO TEJ.
--- NOTE | 2021-01-08 06:58 | NUR ---
SPOKE WITH DR HOUSTON ABOUT NPO STATUS. HE SAID HE WAS UNSURE OF THE NPO STATUS AND TO FOLLOW IT UNTIL DR. LORD COMES BACK TODAY.
[2021-01-08 08:07] LABS: ALBUMIN 1.5 g/dL (3.4-4.8); BILIRUBIN,DIRECT 2.1 mg/dL (0.0-0.3); CALCIUM 8.3 mg/dL (8.4-11.0); CREATININE 0.95 mg/dL (0.55-1.30); POTASSIUM 3.7 mmol/L (3.5-5.1); TOTAL BILIRUBIN 4.7 mg/dL (0.0-1.0)
[2021-01-08 08:09] LABS: BASOPHILS % (AUTO) 0.5 % (0.0-2.0); EOSINOPHILS # (AUTO) 0.4 K/uL (0.0-0.4); EOSINOPHILS % (AUTO) 6.9 % (0.0-4.0); HEMOGLOBIN 7.3 g/dL (12.0-16.0); LYMPHOCYTES # (AUTO) 1.3 K/uL (1.0-5.5); LYMPHOCYTES % (AUTO) 24.1 % (20.5-51.5); MEAN CORPUSCULAR HEMOGLOBIN 33 pg (27-31); MEAN CORPUSCULAR HGB CONC 33 % (32-36); MEAN CORPUSCULAR VOLUME 99 fL (79.0-98.0); MONOCYTES # (AUTO) 0.5 K/uL (0.0-1.0); MONOCYTES % (AUTO) 9.5 % (1.7-9.3); NEUTROPHILS # (AUTO) 3.3 K/uL (1.8-7.7); PLATELET COUNT (AUTO) 66 K/uL (130-430); RED BLOOD CELL COUNT(AUTO) 2.22 MIL/uL (4.2-6.2); RED CELL DISTRIBUTION WIDTH 20.1 % (9.0-15.0); WHITE BLOOD COUNT (AUTO) 5.6 K/uL (4.8-10.8)
[2021-01-08 08:34] LABS: INR 1.6 (0.8-1.2); PROTHROMBIN TIME 16.9 SECS (9.5-12.5)
--- NOTE | 2021-01-08 09:25 | NUR ---
SPEECH THERAPY WAS CALLED TO [facility], RE: SWALLOWING EVAL. LEFT [facility] A VOICE MESSAGE.
[2021-01-08] MEDS: MULTIVITS,CA,MINERALS/IRON/FA 1 TABLET PO SCH (10:10)
[2021-01-08] MEDS: FOLIC ACID 1 MG TABLET PO SCH (10:10)
[2021-01-08] MEDS: RIFAXIMIN 550 MG TABLET PO SCH ×2 (10:10→21:18)
[2021-01-08] MEDS: PROPRANOLOL HCL 10 MG TABLET (INDERAL) PO SCH ×2 (10:11→21:18)
[2021-01-08] MEDS: FAMOTIDINE 20 MG TABLET PO SCH ×2 (10:12→21:11)
[2021-01-08] MEDS: FERROUS SULFATE 300 MG/5 ML UDC PO SCH (10:12)
[2021-01-08] MEDS: LACTULOSE 20 GM/30 ML UDC PO SCH ×4 (10:19→21:00)
[2021-01-08] MEDS: cefTRIAXone 1 GM in D5W 50 ML IV SCH (10:20)
[2021-01-08 10:57] LABS: HEMATOCRIT 21.9 % (36-48)
--- NOTE | 2021-01-08 12:00 | NUR ---
RESTRAINT'S REMOVED AT NOON DUE TO PATIENT NO LONGER BEING CONFUSED OR PULLING AT TUBES PATIENT ALSO ABLE TO SELF TURN. WILL CONTINUE TO PROMP PATIENT TO TURN AND ASSIST IF NECESSARY. COMPLIANT WITH ALL REQUEST'S
[2021-01-08 12:48] VITALS: BP_SYST 145
[2021-01-08] MEDS: D5W 1,000 ML IV SCH ×2 (13:16→21:44)
--- NOTE | 2021-01-08 15:25 | NUR ---
S.T. SWALLOW EVAL SWALLOW EVAL COMPLETED. PT PRESENTS W/ FUNCTIONAL OROPHARYNGEAL SWALLOW W/ NO S/S OF ASPIRATION. REC: MECH SOFT CHOPPED DIET. THIN LIQUIDS OK. NURSE CHUCKY NOTIFIED.
[2021-01-08 16:43] VITALS: BP_SYST 135
--- NOTE | 2021-01-08 18:27 | NUR ---
Diet recommendation verified: Spoke with Dr Thakkar and okay with Speech therapist Annette recommendation ,patient can have Mechanical soft chopped diet.Thin liquids okay.Rn Lucinda informed.
[2021-01-08 19:45] VITALS: BP_SYST 133
--- NOTE | 2021-01-08 19:50 | NUR ---
INITIAL NOTE AT INITIAL ASSESSMENT, PATIENT IS RESTING IN BED, STABLE, NO SIGNS OF RESPIRATORY DISTRESS. PATIENT VERBALIZES NO PAIN. FIANCE IS AT BEDSIDE. PLAN OF CARE FOR THE EVENING IS COMMUNICATED WITH THE PATIENT AND HER FIANCEE. PATIENT DEMONSTRATES CORRECT USAGE OF CALL LIGHT AT THIS TIME. BED IS LOCKED, ALARMED, AND AT THE LOWEST LEVEL. FALL SAFETY EDUCATION PROVIDED. FALL, SAFETY, AND RESPIRATORY PRECAUTIONS WILL BE TAKEN THROUGHOUT THE SHIFT. PATIENT'S LAYNE WILL BE IRRIGATED [id number] THROUGHOUT THE SHIFT.
--- NOTE | 2021-01-08 20:20 | NUR ---
PATIENT IMPROVED THROUGH OUT THE DAY. MORE ALERT AWAKE ALL DAY NOT PULLING AT ANY TUBES'S PATIENT STARTED ON ICE CHIP'S THEN LATER AFTER SWALLOWING EVALUATION STARTED ON SOFT CHOPPED DIET. TOLERATED FOOD WELL NG TUBE REMOVED CONTINUE TO IRRIGATE LAYNE CATHETER PER ORDERS URINE AT END OF SHIFT SLIGHTLY SLIGHTER. AMMONIA LEVEL BACK TO NORMAL. SPOKE NUMEROUS TIMES WITH [facility] IN REGARD TO TRANSFERRING PATIENT TO MORE [facility] MORE IMPORTANT PATIENT LIVER SPECIALIST SEE'S PATIENT THERE. REPORTED PLAN OF CARE TO PLUMBER'S ASSISTANT'S AND CHARGE NURSE WELL PATIENT NIGHT NURSE RN.
[2021-01-09 00:20] VITALS: BP_SYST 134
--- NOTE | 2021-01-09 02:15 | NUR ---
HYGIENE CARE NOTE HYGIENE CARE IS PROVIDED AT THIS TIME, FRESH LINENS PROVIDED, AND PATIENT IS REPOSITIONED FOR COMFORT. PATIENT TOLERATED WELL. CALL LIGHT PLACED WITHIN REACH. BED IS LOCKED, ALARMED, AND AT THE LOWEST LEVEL.
[2021-01-09] MEDS: ONDANSETRON HCL 4 MG/2 ML VIAL IVP PRN (03:50)
[2021-01-09] MEDS: metroNIDAZOLE 250 mg/NS 50 ML IV SCH ×2 (05:42→14:19)
--- NOTE | 2021-01-09 06:35 | NUR ---
CLOSING NOTE PATIENT'S SLURRED SPEECH HAS BEEN IMPROVING THROUGHOUT THE NIGHT, SHE IS ALSO MORE ALERT THIS MORNING. PATIENT SLEPT WELL THROUGHOUT THE SHIFT, NO SHORTNESS OF BREATH NOTED. AT THIS TIME, PATIENT IS RESTING IN BED, STABLE, NO SIGNS OF RESPIRATORY DISTRESS. CALL LIGHT IS WITHIN REACH. BED IS LOCKED, ALARMED, AND AT THE LOWEST LEVEL. FALL, SAFETY, ASPIRATION, AND RESPIRATORY PRECAUTIONS HAVE BEEN TAKEN THROUGHOUT THE SHIFT. LAYNE HAS BEEN IRRIGATED [id number] THROUGHOUT THE SHIFT, NO ISSUES NOTED. WILL CONTINUE TO MONITOR UNTIL SHIFT REPORT IS GIVEN AT BEDSIDE TO AM NURSE.
[2021-01-09 07:22] LABS: ALBUMIN 1.5 g/dL (3.4-4.8); BILIRUBIN,DIRECT 1.8 mg/dL (0.0-0.3); CREATININE 0.98 mg/dL (0.55-1.30); POTASSIUM 3.3 mmol/L (3.5-5.1)
[2021-01-09 07:50] LABS: BASOPHILS % (AUTO) 0.8 % (0.0-2.0); EOSINOPHILS # (AUTO) 0.4 K/uL (0.0-0.4); EOSINOPHILS % (AUTO) 7.9 % (0.0-4.0); HEMOGLOBIN 7.3 g/dL (12.0-16.0); LYMPHOCYTES # (AUTO) 1.4 K/uL (1.0-5.5); LYMPHOCYTES % (AUTO) 25.7 % (20.5-51.5); MEAN CORPUSCULAR HEMOGLOBIN 33 pg (27-31); MEAN CORPUSCULAR HGB CONC 34 % (32-36); MEAN CORPUSCULAR VOLUME 98 fL (79.0-98.0); MONOCYTES # (AUTO) 0.5 K/uL (0.0-1.0); MONOCYTES % (AUTO) 9.2 % (1.7-9.3); NEUTROPHILS % (AUTO) 56.4 % (40.0-70.0); PLATELET COUNT (AUTO) 65 K/uL (130-430); RED CELL DISTRIBUTION WIDTH 19.7 % (9.0-15.0); WHITE BLOOD COUNT (AUTO) 5.3 K/uL (4.8-10.8)
[2021-01-09 08:00] VITALS: BP_SYST 131
[2021-01-09 08:26] LABS: HEMATOCRIT 21.7 % (36-48)
[2021-01-09] MEDS: FAMOTIDINE 20 MG TABLET PO SCH (09:28)
[2021-01-09] MEDS: MULTIVITS,CA,MINERALS/IRON/FA 1 TABLET PO SCH (09:28)
[2021-01-09] MEDS: FOLIC ACID 1 MG TABLET PO SCH (09:29)
[2021-01-09] MEDS: PROPRANOLOL HCL 10 MG TABLET (INDERAL) PO SCH (09:30)
[2021-01-09] MEDS: FERROUS SULFATE 300 MG/5 ML UDC PO SCH (09:30)
[2021-01-09] MEDS: LACTULOSE 20 GM/30 ML UDC PO SCH ×3 (09:46→17:00)
[2021-01-09] MEDS: RIFAXIMIN 550 MG TABLET PO SCH (09:46)
[2021-01-09] MEDS: cefTRIAXone 1 GM in D5W 50 ML IV SCH (10:58)
[2021-01-09 12:00] VITALS: BP_SYST 133
--- NOTE | 2021-01-09 13:20 | NUR ---
RESTRAINTS PATIENT PULLED OUT HER PICCLINE, WITH POOR VENOUS ACCESS, CONFUSED AT THIS TIME. MATHIEU MCKEON MADE AWARE THAT WE NEED TO PUT BACK THE RESTRAINTS TO THE PATIENT FOR SAFETY, AGREED TO PUT THE RESTRAINTS, CONSENT GIVEN TO RE-INSERT THE PICCLINE
[2021-01-09] MEDS ORDERED: POTASSIUM CHLORIDE 20 MEQ TAB.PRT.SR PO ONE (16:00)
--- NOTE | 2021-01-09 16:05 | NUR ---
Nutrition F/U RD reviewed pt's current EMR including diet Hx, physician notes, nursing notes, pertinent labs/meds/procedures, care trends, and care activity. Short note d/t high pt load. Current Diet Order/Nutrition Support: Mechanical soft, chopped diet x1 day RD rounded to pt's room. Pt was unable to engage in RD verbal interview d/t confusion. Per EMR review, PO intake average of 88% x2 meal records -- much improved than previous days while NPO and on/off PO diet/EN support via NGT, however, pt is not yet meeting nutritional needs and may benefit from Ensure Enlive TID in the event that pt's PO intakes decline. Pt remains at high nutritional risk. RD to F/U within 2-3 days.
--- NOTE | 2021-01-09 16:15 | NUR ---
PATIENT VERY RESTLESS PULLED OUT PICC LINE TRYING TO GET OUT OF BED.SIGNIFICANT OTHER HERE VERY CONCERNED ABOUT PATIENT BEING MORE RESTLESS INFORMATION GIVEN ABOUT AMMONIA LEVEL BEING LOW. FOR PATIENT SAFETY RESTRAINTS PLACED BACK ON PER DOCTOR ORDERS. PATIENT MORE AGITATED WITH RESTRAINTS PLACED CALL TO DR BLAIR CALLED FOR SIGNIFICANT OTHER TO SPEAK. HOPEFULLY SIGNIFICANT OTHER WILL FEEL MORE AT EASE AFTER SPEAKING WITH
[2021-01-09 16:23] VITALS: BP_SYST 132
[2021-01-09] MEDS ORDERED: POTASSIUM CHLORIDE 20 MEQ/PKT PACKET ONE (17:02)
[2021-01-09] MEDS ORDERED: POTASSIUM CHLORIDE 40 MEQ in NS 250 ML IV ONE (17:30)
[2021-01-09] MEDS: LORazepam 2 MG/ML VIAL IVP PRN (17:37)
[2021-01-09] MEDS: D5W 1,000 ML IV SCH (18:28)
--- NOTE | 2021-01-09 19:30 | NUR ---
OPENING NOTE RECEIVED REPORT FROM DAY RN. PATIENT SLEEPING IN BED. FIANCE AT BEDSIDE AND WORRIED ABOUT PT PREVIOUS CONFUSION. WILL KEEP FIANCE UPDATED ON PT CARE.
[2021-01-09 20:00] VITALS: BP_SYST 113
--- NOTE | 2021-01-09 22:06 | NUR ---
HYGIENE CARE DONE LINENS CHANGED. 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 PT EDUCATED ON RESTRAINTS REASONS. WILL CONTINUE TO MONITOR.
--- NOTE | 2021-01-10 00:35 | NUR ---
CALLED PT MATHIEU Serrano CALLED AND LEFT A VOICEMAIL. PT AWAKE AND ASKING TO SPEAK WITH MATHIEU. PT REFUSES PICC.
--- NOTE | 2021-01-10 00:40 | NUR ---
RESTRAINTS REMOVED FOR TRIAL. PT EDUCATED ON REASONS FOR RESTRAINTS AND NEED TO PLACE THEM BACK ON IF PT PULLS AT LINES AND BECOMES COMBATIVE WITH STAFF AGAIN. PT AGREES. ALSO STATES, "I JULIO MAN".
--- NOTE | 2021-01-10 00:44 | NUR ---
CALLED MATHIEU FROM PT ROOM. PT SPEAKING WITH MATHIEU ASKING HIM TO COME PICK HER UP. PT STATES, "YOU GUYS ARE NICE, BUT SOMETHING WEIRD IS GOING ON HERE".
--- NOTE | 2021-01-10 00:57 | NUR ---
PT REFUSED PICC PICC LICENSED PERSONAL AT BEDSIDE. PT STATES SHE SPOKE TO MATHIEU AND WILL LEAVE AMA. WILL CONFIRM WITH MATHIEU. PT CONFUSED AND UNABLE TO TELL ME VINNY LAST TIME. PT UNAWARE OF WHAT HOSPITAL SHE IS AT.
--- NOTE | 2021-01-10 00:59 | NUR ---
SPOKE TO MATHIEU ON PHONE. PER SANAZ MURDOCK, HE IS NOT COMING TO REGISTERED DENTAL HYGIENIST PT. MATHIEU STATES THAT HE IS THE ONE THAT MAKES THE MEDICAL DECISIONS FOR PT. PER SANAZ, HE STATES THAT PT NEEDS RESTRAINTS AND TO GIVE ATIVAN/SEDATIVE TO CALM HER DOWN. SANAZ WILL COME IN AM TO VISIT MATHIEU.
--- NOTE | 2021-01-10 01:17 | NUR ---
BILATERAL SOFT RESTRAINTS PLACED PT COMBATIVE AND TRYING TO PULL OUT IV. PT TRYING TO CALL 911 AND SPEAKING TO SOMEONE ON PHONE. WHEN CHECKED, PHONE WAS NOT ON AND NO ONE WAS ON THE LINE. PT KICKING STAFF WHEN RESTRAINTS PLACED.
[2021-01-10] MEDS: LACTULOSE 20 GM/30 ML UDC PO SCH ×5 (01:35→23:47)
[2021-01-10] MEDS: RIFAXIMIN 550 MG TABLET PO SCH ×3 (01:35→23:47)
[2021-01-10] MEDS: metroNIDAZOLE 250 mg/NS 50 ML IV SCH ×4 (01:40→23:46)
[2021-01-10] MEDS: FAMOTIDINE 20 MG TABLET PO SCH ×3 (01:40→23:47)
[2021-01-10] MEDS: PROPRANOLOL HCL 10 MG TABLET (INDERAL) PO SCH ×3 (01:40→23:48)
[2021-01-10 01:57] VITALS: BP_SYST 130
--- NOTE | 2021-01-10 02:58 | NUR ---
PT CONFUSED UNAWARE OF WHERE SHE IS. PT PULLED OUT IV. TIP INTACT. NO BLEEDING AT SITE.
--- NOTE | 2021-01-10 03:25 | NUR ---
NEW IV INSERTED 24 G TO RIGHT HAND. BLOOD RETURN. PT TOLERATED WELL.
[2021-01-10] MEDS: LORazepam 2 MG/ML VIAL IVP PRN ×3 (03:29→21:06)
[2021-01-10] MEDS: D5W 1,000 ML IV SCH ×2 (05:10→17:02)
--- NOTE | 2021-01-10 07:15 | NUR ---
CLOSING NOTE PATIENT AWAKE IN BED. RESTRAINTS IN PLACE, BILATERAL WRIST RESTRAINTS. RADIAL PULSES PRESENT. BILATERAL ARMS AND HANDS WARM AND DRY. PT ABLE TO WIGGLE FINGERS. BILATERAL EDEMA IN ARMS PRESENT. RIGHT HAND 24G IV INTACT AND RUNNING IVF. NO SIGNS OF INFILTRATION NOTED. LAYNE INTACT AND IRRIGATED. ALL NEEDS MET THROUGHOUT THE NIGHT. BED IN LOWEST AND LOCKED POSITION. WILL ENDORSE TO DAY RN.
--- NOTE | 2021-01-10 07:40 | NUR ---
Opening note Received report from night nurse. On room air and tolerating well with no signs of shortness of breath noted. IV is patent, saline locked as ordered. Grayson catheter in place, draining by gravity. Bilateral wrist restraints in place. Bed locked and in lowest position. Call light within reach. bed alarm on.
[2021-01-10 08:00] VITALS: BP_SYST 137
[2021-01-10] MEDS: FOLIC ACID 1 MG TABLET PO SCH (08:53)
[2021-01-10] MEDS: FERROUS SULFATE 300 MG/5 ML UDC PO SCH (08:54)
[2021-01-10] MEDS: MULTIVITS,CA,MINERALS/IRON/FA 1 TABLET PO SCH (08:54)
--- NOTE | 2021-01-10 09:38 | NUR ---
CM note: Higher level of care follow up: [facility]: per Patricia, the pt is accepted to surgery dept # [phone] opt 2, on wait list for bed. UCI: LVM
[2021-01-10] MEDS: cefTRIAXone 1 GM in D5W 50 ML IV SCH (10:18)
[2021-01-10 12:00] VITALS: BP_SYST 132
--- NOTE | 2021-01-10 12:48 | NUR ---
LAB LAB UNABLE TO OBTAIN BLOOD SAMPLE FOR LABS IN AM. PATIENT'S FIANCE PRESENT, UPSET STATING " WHY ARE WE GIVING LACTOLOSE IS THERE IS NO CURRENT AMMONIA LEVEL??" RN CALLED LAB TO TRY TO GET BLOOD AGAIN. WILL MONITOR.
[2021-01-10 16:24] VITALS: BP_SYST 110
--- NOTE | 2021-01-10 18:36 | NUR ---
Closing note Patient is resting in bed. On room air and tolerating well with no signs of shortness of breath noted. IV is patent, saline locked as ordered. Grayson catheter in place, draining by gravity. Bilateral wrist restraints in place. Bed locked and in lowest position. Call light within reach. bed alarm on. Fiance at bedside. Will endorse to night nurse.
--- NOTE | 2021-01-10 19:30 | NUR ---
OPENING NOTE RECEIVED REPORT FROM DAY RN. PATIENT LAYING IN BED WITH RESPIRATIONS EVEN AND UNLABORED ON RAAnnette MURDOCK AT BEDSIDE. LEFT SOFT WRIST TAKEN OFF BY FIANCE AND HAND BEING HELD. EDUCATED PT AND FIANCE ON IMPORTANCE OF RESTRAINTS AND REASONS WHY RESTRAINTS HAD TO BE PLACED. PT CONTINUES TO STATE, "THE OTHER MAN CAME AND PULLED OUT MY IV, NOT ME". LAYNE INTACT AND DRAINING YELLOW FLUID BY GRAVITY. GOOD CIRCULATION IN BILATERAL WRISTS. RADIAL PULSES PRESENT. SKIN WARM AND DRY. PATIENT ABLE TO MOVE FINGERS AND HANDS.
[2021-01-10 20:00] VITALS: BP_SYST 113
--- NOTE | 2021-01-10 20:50 | NUR ---
[facility] CALLED UNIT REQUESTING UPDATE/STATUS OF PT. PER HARRIS, NO BED AVAILABLE YET.
--- NOTE | 2021-01-10 21:18 | NUR ---
PICC LINE NURSE AT BEDSIDE PICC LINE PLACED IN RIGHT UPPER ARM BY FELIBERTO. PT TOLERATED WELL. CXR TO FOLLOW FOR PICC LINE PLACEMENT.
--- NOTE | 2021-01-10 21:32 | NUR ---
RADIOLOGY AT BEDSIDE CXR COMPLETED. PER CONSERVATION SCIENCE OFFICER, PICC LINE IN PLACE AND OK TO BE USED.
--- NOTE | 2021-01-10 22:11 | NUR ---
PT MATHIEU CALLED UNIT MATHIEU YO CALLED FOR UPDATE ON PT. MATHIEU STATES, "THANK YOU GUYS FOR EVERYTHING". PT IN BED SLEEPING. NO SIGNS OF DISTRESS NOTED AT THIS TIME.
[2021-01-11 00:23] VITALS: BP_SYST 122
[2021-01-11] MEDS: LORazepam 2 MG/ML VIAL IVP PRN (02:51)
[2021-01-11] MEDS: metroNIDAZOLE 250 mg/NS 50 ML IV SCH (06:02)
[2021-01-11 06:59] LABS: ALBUMIN 1.5 g/dL (3.4-4.8); CALCIUM 7.7 mg/dL (8.4-11.0); CREATININE 1.14 mg/dL (0.55-1.30); POTASSIUM 4.2 mmol/L (3.5-5.1); TOTAL BILIRUBIN 3.3 mg/dL (0.0-1.0)
--- NOTE | 2021-01-11 07:04 | NUR ---
CLOSING NOTE PT LAYING IN BED ASLEEP WITH RESPIRATIONS EVEN AND UNLABORED ON RA. NO SIGNS OF DISTRESS NOTED. RIGHT UPPER ARM MIDLINE INTACT. DRESSING CLEAN AND DRY. LAYNE INTACT AND DRAINING YELLOW FLUID. ALL NEEDS MET THROUGHOUT THE NIGHT. BED IN LOWEST AND LOCKED POSITION. BED ALARM ON. CALL LIGHT WITHIN REACH. WILL ENDORSE TO DAY RN.
[2021-01-11 07:35] LABS: BASOPHILS % (AUTO) 0.7 % (0.0-2.0); EOSINOPHILS # (AUTO) 0.3 K/uL (0.0-0.4); EOSINOPHILS % (AUTO) 5.2 % (0.0-4.0); LYMPHOCYTES # (AUTO) 1.1 K/uL (1.0-5.5); LYMPHOCYTES % (AUTO) 18.5 % (20.5-51.5); MEAN CORPUSCULAR HEMOGLOBIN 33 pg (27-31); MEAN CORPUSCULAR HGB CONC 34 % (32-36); MEAN CORPUSCULAR VOLUME 99 fL (79.0-98.0); MONOCYTES # (AUTO) 0.4 K/uL (0.0-1.0); MONOCYTES % (AUTO) 7.5 % (1.7-9.3); NEUTROPHILS % (AUTO) 68.1 % (40.0-70.0); PLATELET COUNT (AUTO) 64 K/uL (130-430); RED CELL DISTRIBUTION WIDTH 20.3 % (9.0-15.0); WHITE BLOOD COUNT (AUTO) 5.9 K/uL (4.8-10.8)
--- NOTE | 2021-01-11 07:40 | NUR ---
Opening note Received report from night nurse. On room air and tolerating well with no signs of shortness of breath noted. IV and PICC line are patent, infusing fluids as ordered. Grayson catheter in place, draining by gravity. Bilateral wrist restraints in place. Bed locked and in lowest position. Call light within reach. Bed alarm on. Will continue to monitor.
[2021-01-11 08:00] VITALS: BP_SYST 137
[2021-01-11 08:37] LABS: HEMATOCRIT 18.7 % (36-48); HEMOGLOBIN 6.3 g/dL (12.0-16.0)
[2021-01-11] MEDS: MULTIVITS,CA,MINERALS/IRON/FA 1 TABLET PO SCH (08:43)
[2021-01-11] MEDS: FOLIC ACID 1 MG TABLET PO SCH (08:44)
[2021-01-11] MEDS: FERROUS SULFATE 300 MG/5 ML UDC PO SCH (08:44)
[2021-01-11] MEDS: FAMOTIDINE 20 MG TABLET PO SCH ×2 (08:44→22:10)
[2021-01-11] MEDS: RIFAXIMIN 550 MG TABLET PO SCH ×2 (08:44→22:10)
[2021-01-11] MEDS: PROPRANOLOL HCL 10 MG TABLET (INDERAL) PO SCH ×2 (08:44→22:10)
[2021-01-11] MEDS: LACTULOSE 20 GM/30 ML UDC PO SCH ×6 (08:44→21:59)
[2021-01-11] MEDS ORDERED: DIATR MEGLU/DIATRIZ SOD 30 ML SOLUTION PO ONE (09:07)
--- NOTE | 2021-01-11 09:18 | NUR ---
Dr. Bijan perdomo MD to see patient. Renewed restraints. Critical lab value of hgb 6.3 and hct 18.7. Orders for 1 unit PRBC. Will follow through.
--- NOTE | 2021-01-11 09:37 | NUR ---
Patient accepted at [facility]-liver service-we are waiting for a bed for her. Left a message for fiance regarding status of transfer and requested [employer] for patient to wear when transferred.
[2021-01-11] MEDS: D5W 1,000 ML IV SCH ×2 (10:28→21:10)
[2021-01-11] MEDS: cefTRIAXone 1 GM in D5W 50 ML IV SCH (10:28)
--- NOTE | 2021-01-11 11:41 | NUR ---
CT Patient taken to CT scan with contrast. Consent given by Bijan walter. Patient back on floor. In stable condition. Restraints in place. Patient crying and yelling, states "I want to go home" IV fluids resumed. Will monitor.
[2021-01-11 12:00] VITALS: BP_SYST 130
--- NOTE | 2021-01-11 12:15 | NUR ---
BT INITIATION: Consent signed per Bijan Mcmahon agreeing to administration of blood. Blood has been type and crossmatched. Blood sent from blood bank. Information on unit of blood checked against patient wristband at bedside by two nurses. All information matches. Patient or responsible constitution party informed of potential complications associated with blood transfusion. Informed of possible transfusion reaction symptoms. Aware of need to notify nurse at once of itching, shortness of breath, flushing, feeling of impending doom, or other symptoms not previously present. Vital signs taken within 5 minutes prior to initiation of transfusion. RN will remain with patient for first 15 minutes of transfusion at which time vital signs will be re-assessed.
--- NOTE | 2021-01-11 13:22 | NUR ---
Patient refused lactulose Refused 0900 and 1300 lactulose PO, stating "I'm not drinking that" Will monitor.
--- NOTE | 2021-01-11 14:33 | NUR ---
Blood transfusion completed Patient's vitals are stable. Resting in bed, fiance at bedside. Will monitor.
[2021-01-11 16:26] VITALS: BP_SYST 135
--- NOTE | 2021-01-11 18:36 | NUR ---
Closing note Patient is resting in bed. On room air and tolerating well with no signs of shortness of breath noted. IV is patent, saline locked as ordered. Grayson catheter in place, draining by gravity. Bilateral wrist restraints in place. Bed locked and in lowest position. Call light within reach. Bed alarm on. Fiance at bedside. Will endorse to night nurse.
--- NOTE | 2021-01-11 19:52 | NUR ---
CHRISTOPHER POINT OF CONTACT CALLED RICHARD IGLESIAS, CALLED TO GET REPORT ON PT. BED AVAILABLE. PT GOING TO [address], ROOM 8347 AT [facility] [place]. NUMBER: [phone] SARAH IS RN FOR PT. HARRIS REQUESTING PROGRESS NOTES FROM THE DAY BE FAXED TO HOSPITAL. TRANSPORTATION TO BE CALLED AND SCHEDULED FOR PT [facility].
[2021-01-11 20:00] VITALS: BP_SYST 126
--- NOTE | 2021-01-11 20:49 | NUR ---
UPDATED SANAZ MURDOCK, ON [facility] WILL UPDATE FISPENCER ONCE TRANSPORT HAS ARRIVED.
--- NOTE | 2021-01-11 23:46 | NUR ---
CALLED [facility] THEY CANNOT TRANSFER PT UNTIL TOMORROW MORNING. NO ETA. MORNING RN WILL HAVE TO CALL TO SET UP TRANSPORTATION.
--- NOTE | 2021-01-12 00:11 | NUR ---
[facility] UPDATE UNABLE TO GET TRANSPORTATION FOR PT UNTIL TOMORROW. [facility] CONTACT STATES SHE CANNOT HOLD BED UNTIL MORNING. SUGGESTS WE CALL BACK IN AM. WILL ENDORSE TO DAY RN.
--- NOTE | 2021-01-12 01:58 | NUR ---
UPDATED FIANCE ON PT NOT BEING TRANSFERRED TONIGHT.
[2021-01-12] MEDS: D5W 1,000 ML IV SCH ×2 (02:48→13:37)
[2021-01-12 07:06] LABS: BASOPHILS # (AUTO) 0.1 K/uL (0.0-0.2); BASOPHILS % (AUTO) 0.8 % (0.0-2.0); EOSINOPHILS # (AUTO) 0.2 K/uL (0.0-0.4); EOSINOPHILS % (AUTO) 3.5 % (0.0-4.0); HEMOGLOBIN 7.2 g/dL (12.0-16.0); LYMPHOCYTES # (AUTO) 1.3 K/uL (1.0-5.5); LYMPHOCYTES % (AUTO) 19.7 % (20.5-51.5); MEAN CORPUSCULAR HEMOGLOBIN 32 pg (27-31); MEAN CORPUSCULAR HGB CONC 34 % (32-36); MEAN CORPUSCULAR VOLUME 97 fL (79.0-98.0); MONOCYTES # (AUTO) 0.5 K/uL (0.0-1.0); MONOCYTES % (AUTO) 7.8 % (1.7-9.3); NEUTROPHILS # (AUTO) 4.5 K/uL (1.8-7.7); NEUTROPHILS % (AUTO) 68.2 % (40.0-70.0); PLATELET COUNT (AUTO) 66 K/uL (130-430); RED BLOOD CELL COUNT(AUTO) 2.22 MIL/uL (4.2-6.2); RED CELL DISTRIBUTION WIDTH 19.7 % (9.0-15.0); WHITE BLOOD COUNT (AUTO) 6.6 K/uL (4.8-10.8)
[2021-01-12 07:25] LABS: CALCIUM 7.8 mg/dL (8.4-11.0); POTASSIUM 4.4 mmol/L (3.5-5.1)
--- NOTE | 2021-01-12 07:30 | NUR ---
CLOSING NOTE PT IN BED SLEEPING. RESPIRATIONS EVEN AND UNLABORED ON RA. BED IN LOWEST AND LOCKED POSITION. CALL LIGHT WITHIN REACH. MICHELLE PICC INTACT. DRESSING CLEAN AND DRY. LAYNE INTACT AND DRAINING BY GRAVITY. WILL ENDORSE TO NIGHT RN.
[2021-01-12 07:50] LABS: HEMATOCRIT 21.5 % (36-48)
[2021-01-12] MEDS: LACTULOSE 20 GM/30 ML UDC PO SCH ×2 (09:10→13:25)
[2021-01-12] MEDS: FERROUS SULFATE 300 MG/5 ML UDC PO SCH (09:10)
[2021-01-12] MEDS: RIFAXIMIN 550 MG TABLET PO SCH (09:10)
[2021-01-12] MEDS: MULTIVITS,CA,MINERALS/IRON/FA 1 TABLET PO SCH (09:11)
[2021-01-12] MEDS: PROPRANOLOL HCL 10 MG TABLET (INDERAL) PO SCH (09:11)
[2021-01-12] MEDS: FAMOTIDINE 20 MG TABLET PO SCH (09:11)
[2021-01-12] MEDS: FOLIC ACID 1 MG TABLET PO SCH (09:11)
[2021-01-12 09:18] VITALS: BP_SYST 133
[2021-01-12 12:00] VITALS: BP_SYST 130
--- NOTE | 2021-01-12 16:07 | NUR ---
Patient accepted at [facility] [address] [facility], [address]. [address] [place] [address]. [facility] to transport at 5:30 PM. Patient's fianceBijan, notified of transfer, he agreed to transfer.
--- NOTE | 2021-01-12 16:14 | NUR ---
When ambulance arrives for patient's transfer please call [phone] option #2,option#1 and ask for Ashwini, she will need last vital signs.
[2021-01-12 16:35] VITALS: BP_SYST 149
[2021-01-12 16:50] VITALS: BP_SYST 149
--- NOTE | 2021-01-12 18:11 | NUR ---
Report:Report : Report and update given to Ashwini perez from [facility].
--- NOTE | 2021-01-12 18:15 | NUR ---
DC TRANSFER NOTES: Transfer packets and personal belongings given to [facility] ambulance [facility].Report given to Samantha Dumont Rn transporter from [facility] ambulance via [facility]. Kept the right upper arm picc line and arias in situ as ordered.Salmoe Thakkar at the bedside. Patient in stable condition during transfer.
--- NOTE | 2021-01-15 16:45 | NUR ---
LATE ENTRY FOR HIGH ALERT DRUGS DATED 01/09/21 AT 17:30 ( k-RIDER) HIGH ALERT NOTE: Called Dr. Rolon back at [phone] identified within the medical roster to verify physician authenticity.
== END 2021-01-12 18:20 | disposition short-term general hospital (02) | DRG 280 ==
LOC: SED 20:49 → STU 01-02 00:11
PROVIDERS: ADMIT Family Medicine; ATTEND Family Medicine
PROC: 30233N1 Transfusion of Nonautologous Red Blood Cells into Peripheral Vein, Percutaneous Approach (ICD-10-PCS; principal; 2021-01-03)
PROC: 02HV33Z Insertion of Infusion Device into Superior Vena Cava, Percutaneous Approach (ICD-10-PCS; 2021-01-08)
DX: K70.40 Alcoholic hepatic failure without coma (principal); K70.30 Alcoholic cirrhosis of liver without ascites; N17.0 Acute kidney failure with tubular necrosis; R40.20 Unspecified coma; R65.11 Systemic inflammatory response syndrome (SIRS) of non-infectious origin with acute organ dysfunction; J69.0 Pneumonitis due to inhalation of food and vomit; E43 Unspecified severe protein-calorie malnutrition; C48.0 Malignant neoplasm of retroperitoneum; D63.8 Anemia in other chronic diseases classified elsewhere; D68.9 Coagulation defect, unspecified; I42.9 Cardiomyopathy, unspecified; D69.6 Thrombocytopenia, unspecified; E87.0 Hyperosmolality and hypernatremia; D73.1 Hypersplenism; I47.1 Supraventricular tachycardia; N13.6 Pyonephrosis; D72.828 Other elevated white blood cell count; E80.6 Other disorders of bilirubin metabolism; E87.6 Hypokalemia; F10.20 Alcohol dependence, uncomplicated; N18.9 Chronic kidney disease, unspecified; Z20.822 Contact with and (suspected) exposure to COVID-19; Z79.899 Other long term (current) drug therapy; Z68.23 Body mass index [BMI] 23.0-23.9, adult
CPT/HCPCS: 36415; 36430; 70450-TC; 71045; 76376; 76700-TC; 80048; 80053; 80076; 80307; 81000; 82105; 82140; 82150; 83540; 83550; 83605; 83615; 83690; 83735; 84100; 84703; 85025; 85610-TC; 85730-TC; 86886; 86900; 86901; 86920; 87040-TC; 87086; 92610-GN; 93005; 93306; 93880; 99285; C9113; G0378; G0482; J0360; J0696; J2060; J2405; J3480; J3490; J7050; J7060; P9021; Q9964; Q9967